=== PATIENT | male | born 1990 | race Caucasian/White ===

== ENCOUNTER 2021-07-21 18:03 | Inpatient (IN) ==
[2021-07-21 19:21] LABS: Basophils # (auto) 0.02 K/uL (0-0.2); Basophils % (auto) 0.1 %; Eosinophils # (auto) 0.05 K/uL (0-0.5); Eosinophils % (auto) 0.3 %; Hematocrit (blood only) 50.6 % (42-52); Immature Granulocytes # (auto) 0.01 K/uL (0.00-0.02); Immature Granulocytes % (auto) 0.1 %; Lymphocytes # (auto) 1.44 K/uL (1.2-3.4); Mean Corpuscular Hemoglobin 31.5 pg (25-34); Mean Corpuscular Hgb Conc 33.6 g/dL (32-36); Mean Corpuscular Volume 93.7 fL (80-100); Mean Platelet Volume 10.4 fL (7.4-10.4); Monocytes # (auto) 1.76 K/uL (0.11-0.59); Neutrophils # (auto) 12.67 K/uL (1.4-6.5); Neutrophils % (auto) 79.5 %; Platelet Count 292 K/uL (130-400); RDW Coefficient of Variation 12.3 % (11.5-14.5); RDW Standard Deviation 41.9 fL (36.4-46.3); White Blood Count 15.95 K/uL (4.8-10.8)
[2021-07-21 19:45] LABS: Alanine Aminotransferase 53 (12-78); Aspartate Aminotransferase 9 U/L (15-37); BUN Creatinine Ratio 10.1 (10-20); Blood Urea Nitrogen 11 mg/dl (7-18); Calcium 9.9 mg/dl (8.5-10.1); Carbon Dioxide 29 mmol/L (21-32); Chloride 103 mmol/L (98-107); Creatinine Clr Calc Pharmacy 128.8 ml/min; Est GFR (African American) 111.4 ml/min; Est GFR (Non-African American) 96.1 ml/min; Glucose 108 mg/dl (70-99); Lipase 101 U/L (73-393); Potassium 4.4 mmol/L (3.5-5.1); Sodium 137 mmol/L (136-145)
[2021-07-21 19:48] LABS: Alkaline Phosphatase 54 U/L (45-117); Bilirubin,Total 0.9 mg/dl (0.2-1); Globulin 4.2 gm/dl (2.5-4.0); Total Protein 8.2 gm/dl (6.4-8.2)
[2021-07-21] MEDS ORDERED: FAMOTIDINE 20MG IV PUSH 20 MG/5 ML SYR IV STA (19:58)
[2021-07-21] MEDS ORDERED: ONDANSETRON INJ 2 MG/ML 2 ML VIAL IV STA (19:58)
[2021-07-21] MEDS ORDERED: MoRPHine SULFATE 4 MG/ML 1 ML CARP\\VIAL IV STA (19:58)
[2021-07-21] MEDS ORDERED: GI COCKTAIL ED USE PO ONE (19:58)
[2021-07-21] MEDS ORDERED: SODIUM CHLORIDE 0.9% 1000ML 1,000 ML IV SCH (20:00)
--- NOTE | 2021-07-21 20:02 | Emergency Department Note ---
History of Present Illness General Chief complaint: Abdominal Pain Stated complaint: STERNUM PAIN, NAUSEA, GAS, +24 HRS Time Seen by Provider: 07/21/21 19:46 History of Present Illness Maximum Pain Intensity: 9 This is a 30-year-old male presenting to the emergency department for evaluation of severe epigastric abdominal pain for the past 2 days. The patient is usually healthy and has not had fevers or chills. He does not report injury or trauma. His discomfort is dull, constant, and rated a 9/10. The patient did go to [facility] earlier this morning, where he had essentially normal blood work, negative Covid, and a negative chest x-ray. He was given Carafate at that facility, which minimally improved his discomfort, and they discharged him. The patient states that his pain is still very severe and now he presents to this facility for evaluation. The patient does not take any medication on a regular basis. No history of abdominal surgery. Home Medications Medication Instructions Recorded Confirmed Type omeprazole 20 mg capsule,delayed 20 mg PO DAILY 07/21/21 07/21/21 History release sucralfate 1 gram tablet 1 g PO ACHS 07/21/21 07/21/21 History Allergies Allergy/AdvReac Type Severity Reaction Status Date / Time No Known Allergies Allergy Verified 07/21/21 21:14 Past Med/Surg History Medical History (Updated 07/21/21 @ 22:47 by Jason Parkinson PA-C) No significant past medical history Surgical History No significant past surgical history Family History Other Myocardial infarction Social History Smoking Status: Current some day smoker Preferred Language: Kinyarwanda marital status: Current Living Situation: Family Feels Safe at Home: Yes Review of Systems A total of 10 systems reviewed and were otherwise negative Physical Exam Vital Signs Vital Signs - 24 hr 07/21/21 18:07 07/21/21 21:13 Temperature 36.2 C L Temperature Source Temporal Artery Scan Pulse Rate 99 H Pulse Rate [Finger] 95 H Respiratory Rate 18 20 Blood Pressure 143/96 H Blood Pressure [Right Arm] 153/95 H Blood Pressure Mean 111 Blood Pressure Mean [Right Arm] 114 Pulse Oximetry 97 97 Oxygen Delivery Method Room Air Room Air Sepsis Recent Fever Within 48 Hours No Sepsis New/Unexplained Change in Mental Status N/A Sepsis Action Taken by Nursing No Action Required VITALS: Vitals are noted on the nurse's note and reviewed by myself. Vital signs stable. GENERAL: Well-developed, well-nourished, white male, who is moderately uncomfortable on presentation. HEAD: Normocephalic atraumatic. HEART: Regular rate and rhythm without murmurs gallops or rubs. LUNGS: Clear to auscultation bilaterally without wheezes, rales or rhonchi. No retractions or accessory muscle use. ABDOMEN: Soft with epigastric tenderness on palpation. No lower abdominal tenderness. MUSCULOSKELETAL: No muscle atrophy, erythema, or edema noted. Full range of motion in all extremities. No tenderness to palpation. Normal gait. Strength 5/5 throughout. NEURO: Patient was alert and oriented to person place and time. CN II through XII grossly intact. Course Administered Medications Discontinued Medications Al Hydrox/Mg Hydrox/Simethicone (Gi Cocktail Ed Use) 1 dose PO ONE ONE Stop: 07/21/21 19:59 Last Admin: 07/21/21 21:25 Dose: Not Given Documented by: [id number] Famotidine (Pepcid 20mg Iv Push) 20 mg in 5 mls @ 2.5 mls/min IV NOW STA Stop: 07/21/21 19:59 Last Admin: 07/21/21 21:27 Dose: 2.5 mls/min Documented by: [id number] Sodium Chloride (Nss 1000ml) 1,000 mls @ 999 mls/hr IV .Q1H1M IRINA Stop: 07/21/21 21:00 Last Admin: 07/21/21 21:28 Dose: 999 mls/hr Documented by: [id number] Morphine Sulfate (Morphine Sulfate 4 Mg/Ml 1 Ml Carp\Vial) 4 mg IV NOW STA Stop: 07/21/21 19:59 Last Admin: 07/21/21 21:27 Dose: 4 mg Documented by: [id number] Ondansetron HCl (Ondansetron Inj 2 Mg/Ml 2 Ml Vial) 4 mg IV NOW STA Stop: 07/21/21 19:59 Last Admin: 07/21/21 21:27 Dose: 4 mg Documented by: [id number] Medical Decision Making Differential Diagnosis Differential diagnosis: Etiologies such as biliary colic, cholecystitis, hepatitis, pancreatitis, cardiac disease, pancreatitis, gastritis, peptic ulcer disease, appendicitis, cystitis, diverticulitis, mesenteric ischemia, inflammatory bowel disease, ileus, bowel obstruction, testicular/adnexal torsion, aortic pathology, shingles, as well as others were considered Laboratory Data Result diagrams: 07/21/21 19:14 07/21/21 19:14 Lab Results 07/21/21 07/21/21 07/21/21 Range/Units 19:14 19:14 19:14 WBC 15.95 H (4.8-10.8) K/uL RBC 5.40 (4.7-6.1) M/uL Hgb 17.0 (14.0-18.0) g/dL Hct 50.6 (42-52) % MCV 93.7 (80-100) fL MCH 31.5 (25-34) pg MCHC 33.6 (32-36) g/dL RDW Std Deviation 41.9 (36.4-46.3) fL RDW Coeff of Jessica 12.3 (11.5-14.5) % Plt Count 292 (130-400) K/uL MPV 10.4 (7.4-10.4) fL Immature Gran % (Auto) 0.1 % Neut % (Auto) 79.5 % Lymph % (Auto) 9.0 % Caswell % (Auto) 11.0 % Eos % (Auto) 0.3 % Baso % (Auto) 0.1 % Neut # (Auto) 12.67 H (1.4-6.5) K/uL Lymph # (Auto) 1.44 (1.2-3.4) K/uL Caswell # (Auto) 1.76 H (0.11-0.59) K/uL Eos # (Auto) 0.05 (0-0.5) K/uL Baso # (Auto) 0.02 (0-0.2) K/uL Immature Gran # (Auto) 0.01 (0.00-0.02) K/uL Sodium 137 (136-145) mmol/L Potassium 4.4 (3.5-5.1) mmol/L Chloride 103 (98-107) mmol/L Carbon Dioxide 29 (21-32) mmol/L Anion Gap 5.0 (3-11) BUN 11 (7-18) mg/dl Creatinine 1.05 (0.6-1.4) mg/dl Est Cr Clr Drug Dosing 128.8 ml/min Est GFR ( Amer) 111.4 ml/min Est GFR (Non-Af Amer) 96.1 ml/min BUN/Creatinine Ratio 10.1 (10-20) Glucose 108 H (70-99) mg/dl Calcium 9.9 (8.5-10.1) mg/dl Total Bilirubin 0.9 (0.2-1) mg/dl AST 9 L (15-37) U/L ALT 53 (12-78) Alkaline Phosphatase 54 (45-117) U/L Troponin I < 0.015 Cancelled (0-0.045) ng/ml Total Protein 8.2 (6.4-8.2) gm/dl Albumin 4.0 (3.4-5.0) gm/dl Globulin 4.2 H (2.5-4.0) gm/dl Albumin/Globulin Ratio 1.0 (0.9-2) Lipase 101 (73-393) U/L Imaging Data Radiologist's Impression: Abdomen/Pelvis CT 07/21/21 19:58 CT OF THE ABDOMEN AND PELVIS WITHOUT CONTRAST CLINICAL HISTORY: Upper abdominal pain. COMPARISON STUDY: No previous studies for comparison. TECHNIQUE: Axial images of the abdomen and pelvis were obtained without IV contrast. Images were reviewed in the axial, sagittal, and coronal planes. Automated exposure control was utilized for the study. A dose lowering technique was utilized adhering to the principles of ALARA. FINDINGS: Lung bases are unremarkable. No pneumatosis, free air or portal venous gas is present. The stomach is distended, containing ingested contents. Evaluation of the abdomen and pelvis is suboptimal on this unenhanced exam. There is hepatic steatosis. There is a 1.9 cm hyperdense segment 8 hepatic focus on axial image 17 of 113. There is also a 1.3 cm hyperdense focus within the gallbladder fossa on axial image 119 which may reflect an area of fatty sparing. No biliary or pancreatic ductal dilatation is present. No peripancreatic or pericholecystic infiltration. Unenhanced images of the spleen, adrenal glands and kidneys are normal. There are no urinary calculi and there is no hydronephrosis. The appendix is normal. Multiple loops of moderately dilated fluid-filled small bowel are noted. Small bowel loops measure up to 3.8 cm in caliber. No well-defined transition point is identified although distal small bowel is relatively decompressed. Gradual change in caliber is noted within the right abdomen on axial image 261 of 561. Mild associated mesenteric stranding suggests hyperemia. There is trace ascites within the pelvis. No fluid collection is identified to suggest an abscess. There is mild submucosal fat deposition within portions of small and large bowel. No acute fracture or suspicious lesion is identified within the visualized skeletal structures. IMPRESSION: 1. Multiple loops of moderately dilated, fluid-filled small bowel. Associated mesenteric stranding suggests hyperemia with trace ascites within the pelvis. Distal small bowel relatively decompressed with equivocal transition point within the ileum. Differential considerations include a nonspecific enteritis which may be infectious or inflammatory in etiology. A small bowel obstruction could appear similar. If persistent symptoms, a follow-up CT of the abdomen and pelvis with IV contrast is recommended for further evaluation. 2. Hepatic steatosis. 1.9 cm hyperdense segment 8 hepatic lesion which is low suspicion but can be assessed on follow-up CT. An additional hyperdense focus within the gallbladder fossa may reflect fatty sparing. 3. Normal appendix. ACT 112: Negative or not required by law. Electronically signed by: Robin Carey M.D. 07/21/2021 9:02 PM MDM Narrative Physical exam and history were performed. Nursing notes, EMR, and Medication List were personally reviewed. Patient appears to have abdominal pain bringing him to the emergency department. His discomfort is primarily in the epigastric region. The patient does arrive to the ER during a period of very high volume and extended wait times. The patient was initially evaluated in the waiting room and in the triage room. IV access was established and labs were obtained. He was hydrated with normal saline and given IV morphine, IV Zofran, IV Pepcid, and a GI cocktail. Because of his symptoms CT scan of the abdomen and pelvis was ordered. He was made NPO. The patient's blood work is as above and was reviewed. He does have an elevated white blood cell count of almost 16,000. He does not have a significant anemia or gross electrolyte imbalance. Lipase and transaminases are not diagnostic. Troponin x1 is negative. [facility] [employer] Covid swab that was performed roughly 12 hours ago was available for my review, and was NEGATIVE. CT scan was reviewed by myself and radiology. He has multiple loops of dilated fluid-filled small bowel. His CT certainly could be indicative of small bowel obstruction with equivocal transition point within the ileum. This certainly would correlate with his physical exam and history. NG tube was placed and did drain over 700 cc. Overall the patient does not seem well for immediate discharge from the ER. The case was discussed with the on-call surgical team, who agreed to evaluate the patient here in the ER. Please see their dictation for further patient course, plan, and disposition. The chart was completed utilizing [employer] Speech Voice Recognition Software. Grammatical errors, random word insertions, pronoun errors, and incomplete sentences are an occasional consequence of this system due to software limitations, ambient noise, and hardware issues. Any formal questions or concerns about the content, text, or information contained within the body of this dictation should be directly addressed to the provider for clarification. . Impression & Plan Small bowel obstruction, Epigastric abdominal pain Discharge Plan Visit Data Chief Complaint: Abdominal Pain Stated Complaint: STERNUM PAIN, NAUSEA, GAS, +24 HRS ED Provider: Steve Wilder ED Midlevel Provider: Jason Parkinson Discharge Problem: Small bowel obstruction, Epigastric abdominal pain Patient Disposition: Being Evaluated by Surgeon Forms Stand Alone Forms: My [facility] Prescriptions Prescriptions: No Action sucralfate 1 gram tablet 1 g PO ACHS RF: 0 omeprazole 20 mg capsule,delayed release(DR/EC) 20 mg PO DAILY RF: 0 Referrals Referrals: David Lobato MD [Primary Care Provider] -
[2021-07-21 20:43] LABS: Troponin I < 0.015 ng/ml (0-0.045)
--- NOTE | 2021-07-21 21:04 | CT Scan Report ---
CT OF THE ABDOMEN AND PELVIS WITHOUT CONTRAST CLINICAL HISTORY: Upper abdominal pain. COMPARISON STUDY: No previous studies for comparison. TECHNIQUE: Axial images of the abdomen and pelvis were obtained without IV contrast. Images were revi ewed in the axial, sagittal, and coronal planes. Automated exposure control was utilized for the corrina dy. A dose lowering technique was utilized adhering to the principles of ALARA. FINDINGS: Lung bases are unremarkable. No pneumatosis, free air or portal venous gas is present. The stomach is distended, containing ingested contents. Evaluation of the abdomen and pelvis is suboptima l on this unenhanced exam. There is hepatic steatosis. There is a 1.9 cm hyperdense segment 8 hepatic focus on axial image 17 of 113. There is also a 1.3 cm hyperdense focus within the gallbladder fossa on axial image 119 which may reflect an area of fatty sparing. No biliary or pancreatic ductal dilat ation is present. No peripancreatic or pericholecystic infiltration. Unenhanced images of the spleen, adrenal glands and kidneys are normal. There are no urinary calculi and there is no hydronephrosis. The appendix is normal. Multiple loops of moderately dilated fluid-filled small bowel are noted. Smal l bowel loops measure up to 3.8 cm in caliber. No well-defined transition point is identified althoug h distal small bowel is relatively decompressed. Gradual change in caliber is noted within the right abdomen on axial image 261 of 561. Mild associated mesenteric stranding suggests hyperemia. There is trace ascites within the pelvis. No fluid collection is identified to suggest an abscess. There is mi ld submucosal fat deposition within portions of small and large bowel. No acute fracture or suspiciou s lesion is identified within the visualized skeletal structures. IMPRESSION: 1. Multiple loops of moderately dilated, fluid-filled small bowel. Associated mesenteric stranding conley ggests hyperemia with trace ascites within the pelvis. Distal small bowel relatively decompressed wit h equivocal transition point within the ileum. Differential considerations include a nonspecific ente ritis which may be infectious or inflammatory in etiology. A small bowel obstruction could appear sim ilar. If persistent symptoms, a follow-up CT of the abdomen and pelvis with IV contrast is recommende d for further evaluation. 2. Hepatic steatosis. 1.9 cm hyperdense segment 8 hepatic lesion which is low suspicion but can be as sessed on follow-up CT. An additional hyperdense focus within the gallbladder fossa may reflect fatty sparing. 3. Normal appendix. ACT 112: Negative or not required by law. Electronically signed by: Robin Carey M.D. 07/21/2021 9:02 PM
--- NOTE | 2021-07-21 22:06 | History & Physical Report ---
Date of Service July 21, 2021 Assessment & Plan (1) Small bowel obstruction: Plan: Due to the patient's clinical presentation and imaging he will be admitted to the hospital, proceeding as follows: It appears that the patient may have a small bowel obstruction however he could also merely just have a nonspecific enteritis. The patient will be made n.p.o. We will provide IV fluids for hydration The patient does not have any nausea or vomiting his stomach appears distended and fluid-filled on CT scan therefore I believe an NG tube is warranted to provide some symptomatic relief. The patient is agreeable to this. The bedside nurse and the emergency department placed the NG tube and immediately got between 700 and 800 cc of liquid that appeared to be consistent with partially digested food and bile. We will provide analgesics We will provide antiemetics We will follow serial labs We will check a lactic acid level at this time We will check a KUB in the morning I discussed with the patient the above plan. I informed him that once NG tube i s placed we will monitor him symptomatically and when he has return of bowel function the NG tube removed and his diet can be slowly advance. I did inform them that this may take several days. He did expresses understanding We will use SCDs and Lovenox for DVT prevention The patient be a level 1 full code History of Present Illness Chief Complaint: "My abdomen hurts" Primary Care Provider: David Lobato MD This a 30-year-old male who presents to [facility] emergency department secondary to abdominal pain that began approximately 36 hours ago. Patient reports generalized abdominal pain that is located primarily in the e pigastric region and to a lesser degree the left lower quadrant. Patient denies any nausea or vomiting. He denies any fevers, shakes, chills. He denies any prior abdominal surgeries. He notes that he had a normal bowel movement earlier today. He denies any bright blood per rectum, melanotic stools, or hematochezia. Patient denies any modifying factors or radiation of this pain. He says he has never had pain like this before. Prior to coming to [facility] [address] [facility] he did go to the [facility] in [place] where the patient was evaluated but deemed stable for discharge home with Carafate. It is noteworthy mention that patient did have a COVID-19 test performed at this [facility] which was noted to be negative. In the emergency department patient had labs and imaging which were independently reviewed. CBC revealed white blood cell count was elevated at 15.9. His hemoglobin, hematocrit, platelet count were all within normal range. Chemistry profile showed a sodium, potassium, BUN, and creatinine were all within normal range. There is no significant elevation of patient's LFTs or lipase. An EKG showed normal sinus rhythm. There is no changes indicative of acute ischemia CT scan of the abdomen pelvis was performed without contrast. This showed the patient had multiple loops of dilated and fluid-filled small bowel with some mesenteric stranding. The distal small bowel was noted to be decompressed. An equivocal transition point was noted within the ileum. The interpreting radiologist felt that this could represent either a small bowel obs truction or nonspecific enteritis. The patient's appendix appeared normal on the study. Patient was also noted to have a 1.9 cm hepatic lesion of low suspicion. At the time of my interview the patient was in no distress but did seem somewhat uncomfortable. Allergies Allergy/AdvReac Type Severity Reaction Status Date / Time No Known Allergies Allergy Verified 07/21/21 21:14 Home Medications Medication Instructions Recorded Confirmed Type omeprazole 20 mg capsule,delayed 20 mg PO DAILY 07/21/21 07/21/21 History release sucralfate 1 gram tablet 1 g PO ACHS 07/21/21 07/21/21 History Past Med/Surg History Medical History (Updated 07/21/21 @ 22:47 by Jason Parkinson PA-C) No significant past medical history Surgical History No significant past surgical history Family History Other Myocardial infarction Social History Smoking Status: Current some day smoker Preferred Language: Wolof marital status: Current Living Situation: Family Feels Safe at Home: Yes Review of Systems Constitutional: no fever and no chills Eyes: no diplopia Ear, Nose, Mouth, Throat: no ear pain Respiratory: no cough and no dyspnea Cardiovascular: no chest pain Gastrointestinal: + abdominal pain and + belching; no nausea, no vomiting and no diarrhea/loose stools Genitourinary: no dysuria Musculoskeletal: no back pain Integumentary: no rash Neurologic: no localized weakness Physical Exam Constitutional: well developed and well nourished; no acute distress Eyes: no conjunctival abnormality ENMT: Ears: no hearing impairment Mouth: no oropharynx abnormality Neck: trachea midline Respiratory: normal respiratory effort, lungs clear to auscultation Cardiovascular: Rate/Rhythm: regular rate and regular rhythm Gastrointestinal (Abdomen): Abdomen is mildly distended and slightly tympanic to percussion. I do not appreciate any masses with palpation. There is no rebound tenderness or guarding. I did not appreciate any hernias. Patient did have tenderness with palpation in the epigastric area and to a lesser degree the left lower quadrant. Musculoskeletal: No calf tenderness Skin: no rashes Neurologic: moves all extremities Psychiatric: A+Ox3, euthymic affect Results & Data Results & Data ([facility]) Vital Signs (Past 12 Hours) Vital Signs Temp Pulse Pulse Resp BP BP Pulse Ox 07/21/21 21:13 95 H 20 153/95 H 97 07/21/21 18:07 36.2 C L 99 H 18 143/96 H 97 PG Care Time/CCT Total # of Minutes Spent Total Time Spent with Patient: Total time spent is greater than 50% in coordination of care (as documented) at patient's floor/unit and/or counseling patient: Coding Level of Care Code 33878 Initial Inpt Care Lvl 3 Diagnoses Small bowel obstruction K56.609
[2021-07-21] MEDS: LACTATED RINGER'S 1,000 ML IV SCH (22:42)
[2021-07-22] MEDS ORDERED: ONDANSETRON INJ 2 MG/ML 2 ML VIAL IV PRN (00:50)
[2021-07-22] MEDS ORDERED: ACETAMINOPHEN 1,000 MG/100 ML VIAL IV PRN (00:50)
[2021-07-22 06:23] LABS: Basophils # (auto) 0.02 K/uL (0-0.2); Basophils % (auto) 0.2 %; Eosinophils # (auto) 0.32 K/uL (0-0.5); Eosinophils % (auto) 2.8 %; Hematocrit (blood only) 44.6 % (42-52); Hemoglobin 14.7 g/dL (14.0-18.0); Immature Granulocytes # (auto) 0.02 K/uL (0.00-0.02); Immature Granulocytes % (auto) 0.2 %; Lymphocytes # (auto) 2.07 K/uL (1.2-3.4); Lymphocytes % (auto) 18.3 %; Mean Corpuscular Hemoglobin 30.9 pg (25-34); Mean Corpuscular Volume 93.7 fL (80-100); Mean Platelet Volume 10.8 fL (7.4-10.4); Monocytes # (auto) 1.92 K/uL (0.11-0.59); Neutrophils # (auto) 6.97 K/uL (1.4-6.5); Neutrophils % (auto) 61.5 %; Platelet Count 257 K/uL (130-400); RDW Coefficient of Variation 12.2 % (11.5-14.5); RDW Standard Deviation 41.9 fL (36.4-46.3); Red Blood Count 4.76 M/uL (4.7-6.1); White Blood Count 11.32 K/uL (4.8-10.8)
[2021-07-22 06:45] LABS: BUN Creatinine Ratio 13.3 (10-20); Calcium 8.7 mg/dl (8.5-10.1); Creatinine Clr Calc Pharmacy 157.3 ml/min; Est GFR (African American) 136.8 ml/min; Potassium 4.2 mmol/L (3.5-5.1)
[2021-07-22] MEDS: FAMOTIDINE 20 MG in SYRINGE 3 ML IV SCH ×2 (07:32→20:14)
[2021-07-22] MEDS: ENOXAPARIN INJ 40 MG/0.4 ML SYR SQ SCH (07:32)
[2021-07-22 07:42] LABS: Appearance Urine Clear (Clear); Bilirubin Urine Negative (Negative); Blood Urine Negative (Negative); Color Urine Dark Yellow; Glucose Urine UA Negative (Negative); Ketones Urine 3+ (Negative); Leukocyte Esterase Urine Negative (Negative); Nitrite Urine Negative (Negative); Protein Urine Negative (Negative); Specific Gravity Urine 1.025 (1.000-1.030); Urobilinogen Urine Negative (Negative)
--- NOTE | 2021-07-22 09:28 | XRay Report ---
XR KUB/Abdomen 1 view CLINICAL HISTORY: Follow-up small bowel obstruction. Abdominal pain COMPARISON STUDY: CT of the abdomen and pelvis from 07/21/2021 TECHNIQUE: Single view of the abdomen. FINDINGS: Mildly dilated loops of small bowel are present within the mid to upper abdomen. The distal small bow el loops are decompressed. There is air seen within the colon. The findings are again suspicious for partial small bowel obstruction. There is no evidence for organomegaly or gross intra-abdominal mass. No abnormal calcifications are seen along the course of the urinary tracts bilaterally. No acute oss eous pathology. IMPRESSION: 1.Mildly dilated loops of small bowel are again seen within the mid to upper abdomen suspicious for p artial small bowel obstruction. ACT 112: Negative or not required by law. Electronically signed by: Brendan Francisco M.D. 07/22/2021 9:27 AM
--- NOTE | 2021-07-22 09:37 | Surgery Progress Note ---
Date of Service July 22, 2021 Assessment & Plan (1) Small bowel obstruction: Plan: Patient here with no past abdominal surgical history with concern of SBO vs enteritis on CT scan NGT was placed yesterday and put out 700cc, due to intolerance he removed it Since then he reports mild improvement in his symptoms. Less belly pain. No n/v. He is starting to pass flatus KUB this AM revealed mildly distended loops of small bowel c/f partial SBO WBC 9(11) Keep NPO with ice/sips for now..will check on him later this AM Patient seen. Still having some lower abdominal discomfort at times. Relatively mild. He is passing gas and had a bowel movement last night. He has had no nausea or vomiting and feels a little bit hungry. His x-rays continue to show some mildly dilated small bowel loops. Clinically he appears to be improving. We will give him a trial of some clear liquids but will advance slowly. Repeat KUB tomorrow. Admission and Anticipated Discharge Date Admission Date: July 21, 2021 Subjective Patient states he is feeling better than yesterday. NGT was in place yesterday, but he removed it. He says since removal no further nausea/vomiting. Reports belly pain is still present, mostly in left lower abdomen, but that it's improved. Says he is starting to pass gas. Physical Exam Physical Exam: awake, alert, no acute distress Gastrointestinal (Abdomen): Inspection/Auscultation: + abdomen distended (mild) Percussion/Palpation: + abdomen tender (discomfort to palpation in the LLQ) and abdomen soft Results & Data ([facility]) Vital Signs (Past 12 Hours) Vital Signs Pulse Resp BP Pulse Ox Pulse Ox 07/22/21 07:10 82 20 147/79 H 93 93 07/22/21 05:31 79 18 105/85 97 07/22/21 01:56 92 H 18 132/76 92 07/22/21 00:51 97 H 18 128/79 93 07/21/21 22:59 99 H 22 150/108 H 95 PG Care Time/CCT Total # of Minutes Spent Total Time Spent with Patient: Total time spent is greater than 50% in coordination of care (as documented) at patient's floor/unit and/or counseling patient: Coding Level of Care Code 74418 Subseq Hosp Care Lvl 2 Diagnoses Small bowel obstruction K56.609
[2021-07-22] MEDS: LACTATED RINGER'S 1,000 ML IV SCH ×3 (09:54→23:07)
[2021-07-23] MEDS: LACTATED RINGER'S 1,000 ML IV SCH ×2 (05:25→17:54)
--- NOTE | 2021-07-23 08:13 | XRay Report ---
KUB HISTORY: Follow up study in a patient with small bowel obstruction eval sbo COMPARISON: KUB 07/22/2021 FINDINGS: Persistent small bowel obstruction with dilated loops of small bowel measuring up to 4.9 cm , mildly progressed from prior. Minimal air is noted within the large bowel. No renal calculi. No ur eteral calculi. No pneumoperitoneum or pneumatosis. No fracture. IMPRESSION: Progressively worsened dilated small bowel loops compatible with ongoing obstruction. Continued follo w-up is needed. ACT 112: Negative or not required by law. The above report was generated using voice recognition software. It may contain grammatical, syntax o r spelling errors. Electronically signed by: Kamar Kaufman M.D. 07/23/2021 8:11 AM
[2021-07-23] MEDS: FAMOTIDINE 20 MG in SYRINGE 3 ML IV SCH ×2 (08:24→20:40)
[2021-07-23] MEDS: ENOXAPARIN INJ 40 MG/0.4 ML SYR SQ SCH (08:24)
--- NOTE | 2021-07-23 09:20 | Surgery Progress Note ---
Date of Service July 23, 2021 Assessment & Plan (1) Small bowel obstruction: Plan: Clinically he is improving however unfortunately his x-rays look worse. He has increased small bowel dilation. I discussed all this with him. We will schedule him for small bowel follow-through today. I cannot advance his diet or consider discharge with worsening imaging. (2) Epigastric abdominal pain: Admission and Anticipated Discharge Date Admission Date: July 21, 2021 Subjective Patient with no new complaints. In fact he states he is feeling better than he was at admission. He tolerated liquid diet all day yesterday. He has no nausea. His abdominal discomfort has improved. He is passing gas but no real bowel movements. Physical Exam Constitutional: WD/WN, vitals as above no acute distress and not ill appearing Eyes: PERRL, conjunctivae normal, anicteric sclerae EOM intact bilaterally ENMT: external ear and nose normal, oropharynx normal Ears: no hearing impairment Neck: trachea midline, no thyromegaly Respiratory: normal respiratory effort; no respiratory distress and does not use accessory muscles Cardiovascular: Rate/Rhythm: regular rate and regular rhythm Gastrointestinal (Abdomen): Abdomen is soft. Nontender. Still mild to moderate distention. Positive bowel sounds. Skin: no rashes, warm and dry Psychiatric: Orientation: alert, oriented x 3 and cooperative Results & Data ([facility]) Vital Signs (Past 12 Hours) Vital Signs Temp Pulse Resp BP Pulse Ox 07/23/21 07:20 36.7 C 76 16 114/71 96 07/22/21 22:37 36.8 C 65 16 123/68 95 PG Care Time/CCT Total # of Minutes Spent Total Time Spent with Patient: Total time spent is greater than 50% in coordination of care (as documented) at patient's floor/unit and/or counseling patient: Coding Level of Care Code 29903 Subseq Hosp Care Lvl 3 Diagnoses Small bowel obstruction K56.609 Epigastric abdominal pain R10.13
--- NOTE | 2021-07-23 10:07 | Electrocardiogram Report ---
Test Reason : Blood Pressure : / mmHG Vent. Rate : 090 BPM Atrial Rate : 090 BPM P-R Int : 132 ms QRS Dur : 100 ms QT Int : 354 ms P-R-T Axes : 034 065 052 degrees QTc Int : 433 ms Normal sinus rhythm Normal ECG When compared with ECG of 15-AUG-2018 21:00, No significant change was found Confirmed by Aurelio Galvez ([id number]) on 07/23/2021 10:07:37 AM Referred By: REFERRED SELF Confirmed By:Aurelio Galvez
--- NOTE | 2021-07-23 15:39 | Fluoroscopy Report ---
FL small bowel follow through CLINICAL HISTORY: 30 years-old Male with SBO. Follow up study in a patient with small bowel obstruct ion. TECHNIQUE: Oral barium was administered to the patient and serial radiographs of the abdomen were pe rformed. COMPARISON STUDY: KUB 07/23/2021, CT abdomen and pelvis 07/21/2021 FLUOROSCOPY TIME: 0.7 minutes. 15 images were submitted. 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 Upon the administration of oral barium contrast, there is prompt opacification of the gastric lumen a nd proximal small bowel. Transit to the large bowel occurred at approximately 4 hours. Subsequently , spot fluoroscopic images of the abdomen were obtained and demonstrate freely movable bowel in all f our abdominal quadrants. The terminal ileum appears unremarkable. IMPRESSION: Persistent dilated small bowel with findings compatible with partial small bowel obstruc tion. ACT 112: Negative or not required by law. The above report was generated using voice recognition software. It may contain grammatical, syntax o r spelling errors. Electronically signed by: Kamar Kaufman M.D. 07/23/2021 3:37 PM
[2021-07-24] MEDS: LACTATED RINGER'S 1,000 ML IV SCH ×2 (01:38→07:52)
[2021-07-24] MEDS: ENOXAPARIN INJ 40 MG/0.4 ML SYR SQ SCH (07:53)
[2021-07-24] MEDS: FAMOTIDINE 20 MG in SYRINGE 3 ML IV SCH (07:54)
--- NOTE | 2021-07-24 08:52 | XRay Report ---
XR KUB/Abdomen 1 view CLINICAL HISTORY: eval for sbo TECHNIQUE: 1 view of the abdomen was obtained. Comparison: Comparison is made to abdomen one view 07/23/2021 FINDINGS: Lung bases are unremarkable. The osseous structures are grossly unremarkable. Interval increase in ga seous distention of multiple loops of small bowel measuring up to 65 mm in diameter. Contrast is note d in the colon. IMPRESSION: Interval increase in small bowel dilation compatible with small bowel obstruction. ACT 112: Negative or not required by law. Electronically signed by: Vinnie Noble M.D. 07/24/2021 8:51 AM
--- NOTE | 2021-07-24 09:46 | Surgery Progress Note ---
Date of Service July 24, 2021 Assessment & Plan (1) Small bowel obstruction: Plan: KUB still showing dilated small bowel loops however clinically much improved. +contrast in colon. + large bm. ha diet. has young kids and really wants to be home for Jovany. Will try solid food and let him go home if he tolerates it. we discussed if symptoms recur he will have to come back in. pt agrees. Admission and Anticipated Discharge Date Admission Date: July 21, 2021 Subjective pt seen. continues to improve. ha full liquids. no n/v. minimal abdominal cramping...much improved overall. +large bm last night. Physical Exam Constitutional: WD/WN, vitals as above no acute distress and not ill appearing Eyes: PERRL, conjunctivae normal, anicteric sclerae EOM intact bilaterally ENMT: external ear and nose normal, oropharynx normal Ears: no hearing impairment Neck: trachea midline, no thyromegaly Respiratory: normal respiratory effort; no respiratory distress and does not use accessory muscles Cardiovascular: Rate/Rhythm: regular rate and regular rhythm Gastrointestinal (Abdomen): soft. minimal ttp. +bs's. no g/r/r Skin: no rashes, warm and dry Psychiatric: Orientation: alert, oriented x 3 and cooperative Results & Data ([facility]) Vital Signs (Past 12 Hours) Vital Signs Temp Pulse Resp BP Pulse Ox 07/24/21 09:12 36.7 C 81 16 131/80 96 07/24/21 07:12 36.6 C 71 18 119/72 96 07/23/21 21:43 37.1 C 71 18 122/73 94 PG Care Time/CCT Total # of Minutes Spent Total Time Spent with Patient: Total time spent is greater than 50% in coordination of care (as documented) at patient's floor/unit and/or counseling patient: Coding Level of Care Code 25718 Subseq Hosp Care Lvl 3 Diagnoses Small bowel obstruction K56.609
--- NOTE | 2021-07-29 09:26 | Discharge Summary ---
Date of Service July 24, 2021 Admission HPI Per Admitting Provider This a 30-year-old male who presents to [facility] emergency department secondary to abdominal pain that began approximately 36 hours ago. Patient reports generalized abdominal pain that is located primarily in the epigastric region and to a lesser degree the left lower quadrant. Patient denies any nausea or vomiting. He denies any fevers, shakes, chills. He denies any prior abdominal surgeries. He notes that he had a normal bowel movement earlier today. He denies any bright blood per rectum, melanotic stools, or hematochezia. Patient denies any modifying factors or radiation of this pain. He says he has never had pain like this before. Prior to coming to [facility] he did go to the [facility] in [place] where the patient was evaluated but deemed stable for discharge home with Carafate. It is noteworthy mention that patient did have a COVID-19 test performed at this [facility] which was noted to be negative. In the emergency department patient had labs and imaging which were independently reviewed. CBC revealed white blood cell count was elevated at 15.9. His hemoglobin, hematocrit, platelet count were all within normal range. Chemistry profile showed a sodium, potassium, BUN, and creatinine were all within normal range. There is no significant elevation of patient's LFTs or lipase. An EKG showed normal sinus rhythm. There is no changes indicative of acute ischemia CT scan of the abdomen pelvis was performed without contrast. This showed the patient had multiple loops of dilated and fluid-filled small bowel with some mesenteric stranding. The distal small bowel was noted to be decompressed. An equivocal transition point was noted within the ileum. The interpreting radiologist felt that this could represent either a small bowel obstruction or nonspecific enteritis. The patient's appendix appeared normal on the study. Patient was also noted to have a 1.9 cm hepatic lesion of low suspicion. At the time of my interview the patient was in no distress but did seem somewhat uncomfortable. Principal Diagnosis small bowel obstruction Discharge Exam awake/alert Gastrointestinal (Abdomen) Percussion/Palpation: + abdomen tender (minimal ttp in llq) and abdomen soft; no guarding Discharge Data Allergies Allergy/AdvReac Type Severity Reaction Status Date / Time No Known Allergies Allergy Verified 07/21/21 21:14 Consultations 07/21/21 21:45 ED Decision to Admit Stat Ordered Studies 07/21/21 19:58 CT abd pelvis wo con Stat 07/23/21 08:55 [place] small bowel follow through Urgent Hospital Course (1) Small bowel obstruction: This is a 30y M with no significant past medical/surgical history who reported to the [facility] ED on 07/21/21 with complaints of abdominal pain. Workup in the ER with a CT revealed findings concerning for possible small bowel obstruction vs enteritis. An NGT was placed and 700cc came out, but patient self removed the tube due to discomfort. He began feeling mildly better on 07/22/21 and clear liquids were started without issues. On 07/23 KUB still showed some findings of small bowel distention despite patient feeling improvement in his symptoms. A small bowel follow through was ordered that showed findings concerning for partial SBO. On 07/24/21 KUB showed continued dilated loops of small bowel but with contrast reaching the colon. Despite KUB findings patient is clinically much improved. He has minimal abdominal discomfort, tolerating clear liquids without issues, and passing flatus/BM's. His diet was advanced of which he tolerated without issue. He was deemed okay for home and was given return precautions should his symptoms redevelop. He demonstrated understanding and was discharged to home on 07/24/21. Total Time Total Time Spent Total Time Spent (In Minutes): 15 Discharge Plan Discharge Items Patient Disposition: Home - Self-Care Reason For Visit: SBO Discharge Diagnosis: small bowel obstruction Activity: Resume your previous activity Lifting: Gradually increase as tolerated Bathing: No limitations Exercise/Sports: Gradually increase as tolerated Driving/Machine Use: Resume 1 day after discharge Non-emergency contact: Primary Care Provider Call non-emergency contact if: you have any medication questions, your symptoms worsen, your pain is not controlled, you have a fever and your temperature is above 101.5 Follow-up/Referrals: Dell Perez DO [Surgeon] - (You do not need to follow up in general surgery clinic. You may call our office if you have any questions/concerns related to your recent hospitalization) David Lobato MD [Primary Care Provider] - 07/30/21 1:00 pm Diet: Low Fiber Addtl Attending Provider Instructions: Pending Studies at Discharge: No Stand-Alone Forms: [facility] [email or web address], Smoking Cessation Medications and DC Order Prescriptions: Continued sucralfate 1 gram tablet 1 g PO ACHS RF: 0 omeprazole 20 mg capsule,delayed release(DR/EC) 20 mg PO DAILY RF: 0 Discharge Orders: Discharge Order (Routine); Ordered 07/24/21 Ordered By: Cande Medel/Other Patient Handouts: Small Bowel Obstruction, Low-Fiber Diet Admission Data Admit Date/Time: 07/21/21 22:14 Attending Provider: Dell Perez Admit Provider: Dell Perez Primary Care Provider: David Lobato Other Providers: Dell Perez Other Interventions: Discharge Summary Assessment (RN) Last Done: 07/24/21 11:42 Coding Level of Care Code D/C DAY MANAGEMENT <30 MINS Diagnoses Small bowel obstruction K56.609
== END 2021-07-24 15:16 | disposition home or self-care (01) | DRG 390 ==
LOC: ED 18:03 → EDINP 22:14 → 3N 07-22 17:17